=== PATIENT | female | born 1960 | race Caucasian/White ===

== ENCOUNTER 2022-01-13 10:01 | Emergency (ER) | payer OTHER ==
[~2022-01-13] VITALS: Ht 160 cm; Wt 83.9 kg
[2022-01-13] MEDS ORDERED: LOSARTAN POTASS50 MG PO (10:29)
[2022-01-13] MEDS ORDERED: ROSUVASTATIN CA10 MG PO (10:30)
== END 2022-01-13 12:41 | disposition home or self-care (01) ==
LOC: ER 10:01
DX: S80.11XA Contusion of right lower leg, initial encounter (principal)

== ENCOUNTER 2022-03-17 07:20 | Outpatient (CLI) | payer OTHER ==
[~2022-03-17 07:20] MED LIST: LOSARTAN POTASS50 MG PO; ROSUVASTATIN CA10 MG PO
== END 2022-03-17 07:21 | disposition home or self-care (01) ==
LOC: RAD 07:20
PROVIDERS: ATTEND Personal Emergency Response Attendant
DX: R10.10 Upper abdominal pain, unspecified (principal); R10.30 Lower abdominal pain, unspecified; M54.50 Low back pain, unspecified

== ENCOUNTER 2025-01-14 20:31 | Emergency (ER) | payer OTHER ==
[~2025-01-14] VITALS: Ht 160 cm; Wt 83.5 kg
[2025-01-15] MEDS ORDERED: KETOROLAC TROMETHAMINE 60 MG VIAL IM STA (00:32)
[2025-01-15] MEDS ORDERED: KETOROLAC TROMETHAMINE 60 MG VIAL IM ONE (00:51)
[2025-01-15 01:11] LABS: HEMATOCRIT 37.3 % (36.0-45.00); HEMOGLOBIN 12.3 g/dL (12.0-15.00); MEAN CELL VOLUME 93.7 fL (80.00-100.00); MEAN CORPUSCULAR HEMOGLOBIN 30.9 pg (27.00-32.0); PLATELET COUNT 164 K/uL (150-450); RED BLOOD COUNT 3.98 M/uL (4.00-6.00); RED CELL DISTRIBUTION WIDTH 13.4 % (11.5-14.5)
[2025-01-15] MEDS ORDERED: OSEL75CA PO (03:00)
== END 2025-01-15 03:11 ==
LOC: ER 20:34
PROVIDERS: General Practice
DX: J10.1 Influenza due to other identified influenza virus with other respiratory manifestations (principal); Z20.822 Contact with and (suspected) exposure to COVID-19; I10 Essential (primary) hypertension; Z88.6 Allergy status to analgesic agent; Z91.013 Allergy to seafood